=== PATIENT | male | born 1985 | race African-American/Black ===

== ENCOUNTER 2019-09-11 13:02 | Inpatient (IN) ==
[2019-09-11 14:26] LABS: BASO# 0.02 X1000 (0.0-0.2); BASO% 0.2 % (0.0-0.8); EOS# 0.07 X1000 (0.0-0.7); EOS% 0.8 % (0.0-10.0); HEMATOCRIT 41.1 % (42.0-52.0); HEMOGLOBIN 14.1 g/dL (14.0-18.0); IMM GRAN# 0.01 X1000 (0.0-0.04); IMM GRAN% 0.1 % (0.0-0.5); LYMPH# 1.72 X1000 (1.2-3.4); LYMPH% 19.4 % (20.5-51.1); MCH 29.5 PG (27-31); MCHC 34.3 g/dL (33-37); MONO# 0.87 X1000 (0.11-0.59); MONO% 9.8 % (1.7-9.3); MPV 9.6 FL (7.4-10.4); NEUT# 6.19 X1000 (1.4-6.5); NEUT% 69.7 % (42.2-75.2); PLT 202 X1000 (130-400); RBC 4.78 XMIL (4.7-6.1); RDW 11.9 % (11.5-14.5); WBC 8.88 X1000 (4.8-10.8)
[2019-09-11 14:53] LABS: INR 0.93; PROTIME 12.9 Seconds (11.0-16.0)
[2019-09-11 14:54] LABS: PTT 28.6 Seconds (22.3-41.8)
[2019-09-11 14:56] LABS: AGAP 9; ALBUMIN 4.2 g/dL (3.5-5.0); ALKALINE PHOSPHATASE 70 U/L (32-122); BUN 7 mg/dL (8-22); CALCIUM 9.1 mg/dL (8.8-10.2); CHLORIDE 103 mmol/L (98-107); COSMO 273; CREATININE 0.8 mg/dL (0.7-1.2); ESTIMATED GFR > 60; GLUCOSE 95 mg/dL (70-104); GOT 23 U/L (10-34); GPT 26 U/L (10-44); POTASSIUM 4.2 mmol/L (3.5-5.1); SODIUM 138 mmol/L (136-145); TCO2 26 mmol/L (25-35); TOTAL PROTEIN 6.8 g/dL (6.3-8.3)
--- NOTE | 2019-09-11 15:21 | PROVIDER DOCUMENTATION ---
This chart was entered by Amalia Desai Scribe, acting as scribe for Ike Aaron CRNP. HPI-Male Problem - General Chief Complaint: Male Stated Complaint: MALE Time Seen by Provider: 09/11/19 13:05 Source: patient Allergies/Adverse Reactions: Patient Allergies Allergy/AdvReac Type Severity Reaction Status Date / Time No Known Allergies Allergy Verified 10/24/14 05:06 Home Medications: Home Medication List Medication Instructions Recorded Confirmed Last Taken Type NK [No Home Medications] 09/11/19 09/11/19 Unknown History - History of Present Illness-Male Nature of Presenting Problem: Pt is a 34 yom who presents to the ED w/ a cc of a swollen penis. Pt states the swelling and pain began during rough intercourse last night. Pt states that he felt like he "hit something" Pts gf denies having any vaginal diaphragm. Pt denies any burning w/ urinating or tenderness. Pt reports that his testicle and scrotum are swollen. Location of Complaint: reports: urethral, scrotal, other (generalized penis area and testicles) Radiation: reports: none Quality of Pain: reports: none Severity in ED: reports: moderate Onset/Duration: reports: last night Timing: reports: still present Context/Activities at Onset: reports: sexual activity Urinary Symptoms: reports: no symptoms Sexual intercourse history: reports: Single Partner Contraception: reports: none Associated Symptoms: reports: penile pain/swelling, pain/swelling in testicle Associated Symptoms: reports: denies symptoms Similar Symptoms Previously?: No Review of Systems - Adult - REVIEW OF SYSTEMS - ADULT Constitutional: reports: see HPI Eyes: reports: no symptoms reported Ears, Nose, Mouth & Throat: reports: no symptoms reported Cardiovascular: reports: no symptoms reported Respiratory: reports: no symptoms reported Gastrointestinal: reports: no symptoms reported Genitourinary: reports: see HPI Musculoskeletal: reports: no symptoms reported Integumentary: reports: see HPI Neurological: reports: no symptoms reported Psychiatric: reports: no symptoms reported Endocrine: reports: no symptoms reported Hematologic/Lymphatic: reports: no symptoms reported Allergic/Immunologic: reports: no symptoms reported All Other Systems: Reviewed and Negative Past History - Adult - PAST MEDICAL HISTORY-ADULT Review of Records: reports: Nursing Assessment Review, Medications Reviewed, Social history reviewed & non-contributory. Major Childhood Illnesses: reports: denies history Cardiovascular: reports: denies history Respiratory: reports: denies history Gastrointestinal: reports: denies history - PRIOR HOSPITALIZATIONS Prior Hospitalizations: reports: none - IMMUNIZATION STATUS Childhood Immunizations: UTD - FAMILY HISTORY Family History: reviewed, not pertinent - SOCIAL HISTORY Smoking: cigar, greater than 1 pack/day Provider spent 3-5 mins advising pt. on dangers of tobacco.: Discussed manners to quit use, and f/u contacts for add'l counseling. Substance Use: denies Alcohol Use Frequency: occasionally Living Situation: family Physical Exam-General - PHYSICAL EXAM-ADULT Initial Vital Signs Reviewed: Yes - CONSTITUTIONAL General Appearance: alert, no apparent distress - EYES Eyes: PERRL/EOMI, pink conjunctivae - HEAD, EARS, NOSE, MOUTH & THROAT HENMT: normocephalic/atraumatic, moist mucous membranes - NECK Neck: non-tender, full range of motion, supple, normal inspection - RESPIRATORY Respiratory: chest non-tender, lungs clear, normal breath sounds - CARDIOVASCULAR Cardiovascular: normal peripheral pulses, regular rate, rhythm - GASTROINTESTINAL (ABDOMEN) Abdominal Exam: normal bowel sounds, non tender, soft, no organomegaly - GENITOURINARY Male Genitalia: scrotal swelling, other (swollen penis). negative: normal genitalia - LYMPHATIC Lymphatic: no adenopathy - MUSCULOSKELETAL Back Exam: normal inspection, no CVA tenderness, no vertebral tenderness Extremity: normal range of motion, non-tender, normal inspection - SKIN Integumentary: warm/dry - NEUROLOGIC Neurologic: grossly normal - PSYCHIATRIC Psych/Mental Status: normal mood/affect, normal thought content, normal thought process, oriented x 3 Progress - PLAN OF CARE/RESULTS Progress/Plan/Lab Results: Vital Signs - 8 hr 09/11/19 13:05 Temperature 98 F Pulse Rate 84 Respiratory Rate 18 Blood Pressure 138/81 O2 Sat by Pulse Oximetry 96 Laboratory Results - last 24 hr 09/11/19 09/11/19 09/11/19 14:18 14:18 14:18 WBC 8.88 RBC 4.78 Hgb 14.1 Hct 41.1 L MCV 86.0 MCH 29.5 MCHC 34.3 RDW Std Deviation 11.9 Plt Count 202 MPV 9.6 Immature Gran % (Auto) 0.1 Neut % (Auto) 69.7 Lymph % (Auto) 19.4 L Burke % (Auto) 9.8 H Eos % (Auto) 0.8 Baso % (Auto) 0.2 Immature Gran # (Auto) 0.01 Neut # (Auto) 6.19 Lymph # (Auto) 1.72 Burke # (Auto) 0.87 H Eos # (Auto) 0.07 Baso # (Auto) 0.02 PT 12.9 INR 0.93 PTT (Actin FS) 28.6 Sodium 138 Potassium 4.2 Chloride 103 Carbon Dioxide 26 Anion Gap 9 BUN 7 L Creatinine 0.8 Estimated GFR/1.73 m2 > 60 BUN/Creatinine Ratio 9 Glucose 95 Calculated Osmolality 273 Calcium 9.1 Total Bilirubin 0.80 AST 23 ALT 26 Alkaline Phosphatase 70 Total Protein 6.8 Albumin 4.2 Globulin 3.0 Albumin/Globulin Ratio 2.0 Orders Category Date Time Status Admit - [facility] Routine AdmDCTranf 09/11/19 14:04 Active Nursing- Obtain EKG ONCE Care 09/11/19 13:59 Active CBC WITH ELECTRONIC DIFF [HEME] Stat Lab 09/11/19 14:18 Completed COMPREHENSIVE METABOLIC PANEL [CHEM] Stat Lab 09/11/19 14:18 Completed PROTIME WITH INR [COAG] Stat Lab 09/11/19 14:18 Completed PTT [COAG] Stat Lab 09/11/19 14:18 Completed EKG [EKG] Stat Ther 09/11/19 13:59 Ordered Transfer/Admit Order [TRANSFER] Routine Transfer 09/11/19 14:07 Ordered Plan to consult with urologist Patient to be transferred to [facility] for surgery. Procedure will be explained in detail by Dr Kingsley upon arrival. Patient made aware of POC and is in agreement of treatment and POC rendered here today. Result Diagrams: 09/11/19 14:18 09/11/19 14:18 - CONSULTS/PCP/HOSPITALIST Notification #1 *Consult/PCP/Hospitalist*: Dr Kingsley Time Discussed: 14:03 Reason/Comments: Fractured Penis Consult Disposition: Admit (for surgery) Departure - Departure Date of Disposition Decision: 09/11/19 Time of Disposition Decision: 14:08 DIAGNOSIS: Penile fracture Qualifiers: Encounter type: initial encounter Qualified Code(s): S39.840A - Fracture of corpus cavernosum penis, initial encounter Disposition: ADMITTED INPATIENT 09 Certified Medical Emergency: Emergent Condition: Critical - Critical Care Note This patient required my direct & personal management of CC.: No Attestation - Physician/ BENITA Attestation Patient care was provided by Advanced Practice Provider:: Yes Advanced Practice Provider:: Ike Aaron Advanced Practice Provider documentation review:: The Mid-level provider documentation, treatment plan and medical decision making was reviewed by the physician who agrees with all treatment and medical decision making by the P. The physician spent face to face time with patient:: Yes (Dr Frazier) Advanced Practice Provider documentation review:: Supervising physician onsite and consulted in the evaluation and care of this patient. The physician did have a face to face encounter with the patient. This chart was documented by the indicated scribe, (Amalia Desai Scribe) and accurately reflects the services I performed and decisions made by me, Ike Aaron CRNP, as attested by the provider's signature.
[2019-09-11] MEDS ORDERED: LR 1,000 ML IV SCH ×2 (15:22→20:00)
[2019-09-11] MEDS ORDERED: KEFZOL 2 GM/D5W 2 GM/50 ML IVPB IV ONE (15:32)
--- NOTE | 2019-09-11 16:10 | EKG Report ---
Test Performed on : 09/11/2019 2:56:19 PM Test Reason : pre op Blood Pressure : / mmHG Vent. Rate : 070 BPM Atrial Rate : 070 BPM P-R Int : 172 ms QRS Dur : 086 ms QT Int : 378 ms P-R-T Axes : 061 095 051 degrees QTc Int : 408 ms Normal sinus rhythm. Rightward axis Borderline ECG No previous ECGs available Confirmed by Silvano LOPEZ, Kike ([id number]) on 09/12/2019 8:19:05 AM
[2019-09-11] MEDS ORDERED: MARCAINE 0.5% ONE ×2 (16:31→17:17)
[2019-09-11] MEDS ORDERED: BACITRACIN OINTMENT ONE (16:31)
[2019-09-11] MEDS ORDERED: FENTANYL ONE (16:35)
[2019-09-11] MEDS ORDERED: DECADRON ONE (16:38)
[2019-09-11] MEDS ORDERED: PRECEDEX ONE (16:41)
[2019-09-11] MEDS ORDERED: KETAMINE ONE (16:52)
[2019-09-11] MEDS ORDERED: VERSED ONE (17:02)
[2019-09-11] MEDS ORDERED: DIPRIVAN 1% ONE (17:02)
[2019-09-11] MEDS ORDERED: SODIUM CHLORIDE 0.9% ONE (17:17)
[2019-09-11] MEDS ORDERED: OFIRMEV 1000 MG/ISOTONIC SOLN 1,000 MG/100 ML BOTTLE ONE (17:17)
[2019-09-11] MEDS ORDERED: MORPHINE IV PRN (19:46)
[2019-09-11] MEDS ORDERED: LABETALOL IV PRN (20:00)
[2019-09-11] MEDS ORDERED: TYLENOL PO PRN (20:00)
[2019-09-11] MEDS ORDERED: ZOFRAN IV PRN (20:00)
[2019-09-11] MEDS ORDERED: COLACE PO SCH (21:00)
--- NOTE | 2019-09-11 21:56 | HISTORY AND PHYSICAL ---
SUBJECTIVE: Penile swelling. HISTORY OF PRESENT ILLNESS: Mr. Powell is a 34-year-old who presented to the emergency room at [facility] complaining of penile swelling. The patient states that he was having intercourse last night around 3 a.m. and had pain with penetration subsequently leading to a popping sensation and loss of his erection. The patient states his penis then began swelling and has persisted to swell. He tried to apply ice and denied significant improvement in the swelling. He denies significant bruising. He says he there is may be a small amount of scrotal swelling. He denies any dysuria, hematuria. Denies any urgency or frequency. The patient feels that he empties his bladder adequately. The patient denies seeing urologist before. Denies family history of kidney stones or prostate cancer. PAST MEDICAL HISTORY: None. PAST SURGICAL HISTORY: None. ALLERGIES: No known drug allergies. HOME MEDICATIONS: None. FAMILY HISTORY: Denies family history of genitourinary malignancies. SOCIAL HISTORY: The patient has a pack-a-day smoking history. Occasional alcohol use and occasional marijuana use. REVIEW OF SYMPTOMS: 12 point ROS preformed with all pertinent positives and negatives in HPI. PHYSICAL EXAMINATION: Temperature 99.2, heart rate 64, blood pressure 140/76, oxygen saturation 100% on room air. GENERAL: No acute distress. Resting comfortably in bed, alert and oriented x3. HEENT: Normocephalic, atraumatic. Pupils equal, round, reactive to light. NECK: Trachea midline with no obvious masses. RESPIRATORY: Good respiratory effort without audible wheezing or rales. CARDIOVASCULAR: Regular rate and rhythm. ABDOMEN: Soft, nontender, nondistended. : No suprapubic tenderness. No CVA tenderness. The patient has an edematous penis with a small amount of bruising. Seems to be most prominent on the ventral surface. The swelling goes all way down to the base of the penis. No palpable corporal defects is palpated. No significant bruising is seen at the base. A small amount of scrotal edema is seen, but bilateral testicles palpated without asymmetry. No tenderness to palpation on exam. MUSCULOSKELETAL: Moving all extremities. SKIN: No skin lesions or rashes. NEUROLOGIC: Gross motor and sensory intact. LABS: White blood cell count 8.9, hemoglobin 14.1, hematocrit 41.1, platelets 202,000, PTT 26.6, PT 12.9. Sodium 136, potassium 4.2, chloride 103, bicarb 26, BUN 7, creatinine 0.8, glucose 95, calcium 9.1. ASSESSMENT AND PLAN: Mr. Powell is a 34-year-old who presented to [facility] complaining of penile swelling after having penile pain, hearing a pop and losing his erection last night with intercourse. The patient has had significant swelling of his penis since then. On exam, patient has penile edema, what appears to be likely ventral penile bruising. I think it is difficult to feel, but no obvious corporal defects are seen. I told him, due to his story that it seems that he has likely penile fracture. I discussed the role of imaging. With both his history and exam, I recommended penile exploration, removal of hematoma, repair of possible corporal defect and cystoscopy to ensure no injuries to the urethra. Patient currently is voiding without issue. In talking with him I discussed role of procedure as well as risks, benefits, and alternatives. Discussed the risk of bleeding, infection, penile curvature, chronic penile pain, erectile dysfunction postoperatively as well as persistent bruising and swelling of the penis. After a thorough discussion of risks, benefits, alternatives, the patient elected to proceed. We will plan to take him to the operating room later today for repair. cc: MD JULIAN Rojas
[2019-09-11] MEDS: NORCO-7.5 PO PRN (23:55)
[2019-09-12] MEDS: KEFZOL 2 GM/D5W 2 GM/50 ML IVPB IV SCH ×2 (00:07→08:01)
--- NOTE | 2019-09-12 06:32 | OPERATIVE NOTE ---
PROCEDURE DATE: 09/11/2019 PREOPERATIVE DIAGNOSES: 1. Penile swelling. 2. Penile fracture. POSTOPERATIVE DIAGNOSES: 1. Penile swelling. 2. Penile fracture. PROCEDURES PERFORMED: 1. Penile exploration. 2. Repair of penile corporal injury. 3. Cystoscopy. 4. Artificial erection. SURGEON: Frandy Kingsley MD. PLANT OPERATOR HELPER: None. COMPLICATIONS: None. BLOOD LOSS: 30 mL. DRAINS: A 16-Trinidadian Frederick catheter. SPECIMENS REMOVED: None. ANESTHESIA: General. INDICATIONS FOR PROCEDURE: Mr. Powell is a 34-year-old who had presented to the emergency room complaining of penile swelling and edema. The patient had an episode of penile pain during intercourse with a spontaneous loss of erection and subsequent penile swelling. The patient had this occur approximately 12 hours prior to presentation to the emergency room. Urology was consulted, and he was evaluated. Patient had penile swelling with small amount of bruising with deformity of the penis. Concern arose that the patient likely had a penile fracture. I talked with them regarding surgical intervention including penile exploration, and repair of corporal rupture. After further discussion of risks including bleeding, infection, long-term erectile dysfunction, damage to surrounding blood vessels and nerves, some penile curvature as well as persistent acute and chronic pain, the patient elected to proceed. DESCRIPTION OF PROCEDURE: After informed consent was obtained, the patient was brought to the operating room, and placed on the operating table in supine position. The patient received preoperative antibiotics and underwent endotracheal intubation. He was then shaved, prepped and draped in the usual fashion. A preoperative time-out was performed with all parties in agreement, including anesthesia, surgical and nursing staff. At which point a penile exam was performed. A small amount of bruising was seen in the scrotum as well as significant penile edema. No obvious defect was palpated on exam. There was slight deformity of the penis at the base of the right side, but no palpable corporal rupture was felt. Cystoscopy was then performed which showed a normal urethra with no evidence of any urethral trauma, papillary lesions, or stricture disease. The patient had a small prostate without hypertrophy. The entirety of the bladder was inspected with no evidence of diverticulum, cellules, or trabeculations. Both ureteral orifices were visualized with efflux of clear yellow urine. The patient's bladder was left full, and a 16-Trinidadian Frederick catheter was inserted through the urethra, inflated with 10 mL of sterile water and placed to gravity drainage. At which point a skin marker was used to make a subcoronal incision. This was marked and then using a scalpel it was excised through the overlying tissues until the corporal bodies were seen. Once there, we dissected down until the corpora were able to be visualized and then did a complete degloving incision. At which time a degloving incision was then taken down all the way to the base of the penis on the right side. A large amount of clot was visualized and extracted. Underneath this, corporal cavernosal bodies were seen. There was an injury seen at mid corporal body on the right. Preformed exam all the way to the base of the penis as far down as possible with no other defects seen. The left side was also evaluated without any injuries evaluated. The right corporal defect seen to encompass right up to the location of the urethra on the ventral surface of the corpora cavernosa, but not involve the urethra. The wound was then vigorously irrigated, and all clot was extracted. Devitalized tissue was debrided. The Pham's fascia had already been violated at which point using a 3-0 PDS suture, and interrupted sutures were then approximated to close the corporotomy. Once this was performed, artificial erection was then obtained using saline and Marcaine, which allowed for a watertight anastomosis and no other injuries were seen. At which point 2-0 Vicryl was used to approximate the Pham's fascia. Good hemostasis was then obtained. Small amount of bleeding was seen from the skin edges. Then a 3-0 chromic was used to approximate our subcoronal incision first starting at the 12:00 and 6:00, and then placing interrupted sutures in between until the skin edges were approximated. At which point iodoform was then used overlying our incision. Then, a Stephen wrap was placed all the way around the penis. We then used Coban for an adherent wrap at which point the patient was awoken, and was taken to recovery in stable condition. DISPOSITION: The patient will be admitted overnight to the hospital and remove his catheter in the morning. We will likely leave the dressing on for at least 48 hours. The patient hopefully will be able to be discharged tomorrow. cc: MD JULIAN Rojas
[2019-09-12] MEDS: NORCO-7.5 PO PRN (07:39)
--- NOTE | 2019-09-12 07:50 | PROGRESS NOTE ---
DATE: 09/12/2019 SUBJECTIVE: Postoperative day 1 from penile exploration, repair of right corporal injury, cystoscopy, and artificial erection. The patient presents after sustaining a penile fracture approximately 10 hours prior. The patient had penile swelling. He was taken to the operating room. The patient's swelling slightly improved today. He is having some burning in his urethra due to his catheter is inserted. He denies any hematuria. No fevers or chills overnight. Tolerating a diet without nausea or vomiting. OBJECTIVE: Vital Signs: Temperature 98.2, heart rate 69, blood pressure 111/67, oxygenation saturation 100% on room air. General: No acute distress. Resting comfortably in bed. Alert and oriented x3. Respiratory: Good respiratory effort without audible wheezing or rales. Abdomen: Soft, nontender, nondistended. : No suprapubic tenderness. Urethral catheter in place, draining clear yellow urine. A small amount of scrotal bruising. The penis is much less edematous. The glans is soft and nontender to palpation. A small amount of blood is seen on the bottom portion of the gauze. Musculoskeletal: Moving all extremities. ASSESSMENT AND PLAN: Mr. Powell is a 34-year-old who presented to the emergency room yesterday after sustaining a penile fracture. The patient was taken to the operating room emergently for penile exploration, repair of right corporal injury, artificial erection, and cystoscopy. The patient did well. He has had minimal pain. His edema continues to improve. The patient has a dressing in place. I educated him that we could remove this tomorrow. The patient's catheter was removed this morning. I will insure the patient is able to urinate. The patient remains on perioperative antibiotics and oral pain medication. We will transition to oral pain medication and oral antibiotics. Encouraged him to be ambulatory. The patient likely will be able to discharge later today. We will see him back in the office on Thursday for a followup. I encouraged him to refrain from sexual activity for 3 weeks. The patient has dissolvable sutures in the skin. I encouraged him to use bacitracin ointment after removal of dressing. At the time of discharge, continue his home medications. I gave him the phone number for the urology clinic and he can call if issues arise. cc: MD JULIAN Rojas
[2019-09-12 07:51] VITALS: BP 132/79
[2019-09-12] MEDS ORDERED: PERIDEX MT SCH (09:00)
== END 2019-09-12 09:29 | disposition home or self-care (01) | DRG 909 ==
LOC: P.ED 13:02 → 4N 14:22
PROVIDERS: ADMIT Urology; ATTEND Urology
PROC: [UNRECOGNIZED PROCEDURE] (2019-09-11 16:24)